=== PATIENT | female | born 1980 | race African-American/Black ===

== ENCOUNTER 2017-12-16 14:37 | Emergency (ER) | payer OTHER ==
[~2017-12-16] VITALS: Ht 170.2 cm; Wt 120.2 kg
--- NOTE | ~2017-12-16 | EKG ---
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 12/16/17 1713 1450 1450 Gurpreet Clark MD, FACC /EPI
[~2017-12-16 14:37] MED LIST: BACTRIM DS TAB1 EACH PO; CYCLOBENZAPRINE5 MG PO; DOXYCYCLINE 10100 MG PO; IBUPROFEN 200200 M1 OR; IBUPROFEN 800800 MG PO; NOHOMEMEDICATIONS; NORCO 5-325 TA1 EACH PO; NORCO 7.5-3251 EACH PO; PYRIDIUM200 MG PO
[2017-12-16] MEDS ORDERED: NAPROSYN500 MG PO (16:17)
[2017-12-16 16:39] VITALS: BP 117/67
== END 2017-12-16 16:40 | disposition home or self-care (01) ==
LOC: ER 14:37
DX: M94.0 Chondrocostal junction syndrome [Tietze] (principal)

== ENCOUNTER 2018-10-11 05:41 | Emergency (ER) | payer OTHER ==
[~2018-10-11] VITALS: Ht 170.2 cm; Wt 117.9 kg
[~2018-10-11 05:41] MED LIST changes: +NAPROSYN500 MG PO
[2018-10-11 05:47] VITALS: BP 110/76
[2018-10-11] MEDS ORDERED: NORCO 5-325 TA1 EACH PO (06:28)
[2018-10-11] MEDS ORDERED: MEDROLDOSEPACK PO (06:28)
== END 2018-10-11 06:41 | disposition home or self-care (01) ==
LOC: ER 05:41
DX: G57.12 Meralgia paresthetica, left lower limb (principal)

== ENCOUNTER → 2019-12-16 | Outpatient (CLI) | payer OTHER ==
[~2019-12-16] MED LIST changes: +MEDROLDOSEPACK PO
== END ==
LOC: ULTRA 07:01
DX: Z80.41 Family history of malignant neoplasm of ovary (principal)

== ENCOUNTER → 2019-12-22 | Outpatient (CLI) | payer OTHER | LOC: BC 08:09 | DX: Z12.31 Encounter for screening mammogram for malignant neoplasm of breast (principal) ==

== ENCOUNTER → 2020-12-30 | Outpatient (CLI) | payer OTHER | LOC: BC 13:43 | PROVIDERS: ATTEND Nurse Practitioner | DX: Z12.31 Encounter for screening mammogram for malignant neoplasm of breast (principal) ==

== ENCOUNTER 2021-06-19 13:39 | Emergency (ER) | payer OTHER ==
[~2021-06-19] VITALS: Ht 167.6 cm; Wt 112.0 kg
[2021-06-19 14:37] LABS: ABSOLUTE NEUTROPHILS 5.7 thou/uL (1.4-8.2); BASOPHILS 0.9 % (0.0-2.0); EOSINOPHILS 3.3 % (0.0-3.0); HEMATOCRIT 39.2 % (37.0-47.0); HEMOGLOBIN 13.8 gm/dL (12.0-15.0); LYMPHOCYTES 24.8 % (24.0-44.0); MCH 32.1 pg (26.0-34.0); MCHC 35.1 g/dL (28.0-37.0); MCV 91.5 fL (80.0-100.0); MONOCYTES 8.2 % (1.0-8.0); PLATELET COUNT 305 thou/uL (150-400); POLYS 62.8 % (36.0-66.0); RBC 4.29 mil/uL (4.20-5.00); RDW 12.8 % (10.5-14.5); WBC 9.1 thou/uL (4.0-11.0)
[2021-06-19 14:45] LABS: ANION GAP 9 mmol/L (7-16); BUN 11 mg/dL (7-18); CALCIUM 9.4 mg/dL (8.5-10.1); CHLORIDE 104 mmol/L (98-107); CO2 26 mmol/L (21-32); CREATININE 0.9 mg/dL (0.6-1.0); GLUCOSE 110 mg/dL (74-106); POTASSIUM 4.8 mmol/L (3.5-5.1); SODIUM 139 mmol/L (136-145)
[2021-06-19 14:57] LABS: ALBUMIN 3.8 g/dL (3.4-5.0); DIRECT BILIRUBIN < 0.1 mg/dL (<0.1-0.2); SGOT 27 U/L (15-37); SGPT 39 U/L (14-59); TOTAL BILIRUBIN 0.5 mg/dL (0.2-1.0); TOTAL PROTEIN 8.3 g/dL (6.4-8.2)
[2021-06-19] MEDS ORDERED: MOBIC15 MG PO (15:22)
[2021-06-19 15:35] VITALS: BP 133/74
--- NOTE | 2021-06-20 07:59 | EKG ---
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1980 Requested By: Alyssa Cline Order Number: [id number] MD: Edenilson Oconnell Measurements Intervals [place] Rate: 76 P: 31 [place]: 125 QRS: 67 QRSD: 80 T: 63 QT: 354 QTc: 399 Interpretive Statements Sinus rhythm ST elev, probable normal early repol pattern Baseline wander in lead(s) III,aVF Compared to ECG 12/16/2017 14:50:25 ST (T wave) deviation now present Electronically Signed On 06-20-2021 7:59:22 WORD PROCESSING SPECIALIST by Edenilson Oconnell [email or web address] <ELECTRONICALLY SIGNED> By: Edenilson Oconnell MD, [facility] 06/20/21 0759 1354 1354 Edenilson Oconnell MD, FAC /EPI
== END 2021-06-19 15:37 | disposition home or self-care (01) ==
LOC: ER 13:39
PROVIDERS: Emergency Medicine
DX: R07.89 Other chest pain (principal); Z79.1 Long term (current) use of non-steroidal anti-inflammatories (NSAID); Z79.899 Other long term (current) drug therapy